=== PATIENT | female | born 1990 | race Caucasian/White ===

== ENCOUNTER 2018-12-05 05:55 | Day surgery (SDC) | payer BC ==
[2018-12-05] MEDS ORDERED: DIPRIVAN 200 MG/20 ML IV ONE (05:56)
[2018-12-05] MEDS ORDERED: Ketamine HCl 50 MG/ML IV ONE (05:56)
[2018-12-05] MEDS ORDERED: Lactated Ringers 1,000 ML IV SCH (06:30)
[2018-12-05 08:59] VITALS: O2SAT 96
[2018-12-05 09:37] VITALS: BP 110/60; PULSE 60
--- NOTE | 2018-12-05 09:47 | OP ---
SURGERY DATE/TIME: 12/05/2018 0806 PREOPERATIVE DIAGNOSIS: Diarrhea, mucus and blood in the stool. POSTOPERATIVE DIAGNOSIS: Small polyps in the transverse colon. PROCEDURE: Colonoscopy with cold biopsy. SURGEON: Dr. Silveira. ANESTHESIA: MAC. Medications given by anesthesia department. HISTORY: The patient is a 28 year-old white female who presents now with complaints of occasional intermittent rectal bleeding along with mucus, diarrhea and change in bowel habits. The patient was felt the need to have endoscopic evaluation. She was appraised of the risks of the procedure including the risk of perforation, phlebitis, untoward reaction to medication, bleeding and missed lesions. The patient verbalized her understanding and desired to have the procedure performed. DESCRIPTION OF PROCEDURE: The patient was given the medications by the anesthesia department. She had continuous pulse oximetry, ECG monitoring, intermittent blood pressure monitoring and tidal CO2 monitoring during the examination. She was placed in the left lateral decubitus position. A digital rectal examination was performed and revealed normal anal sphincter tone and no masses. The flexible Olympus pediatric colonoscope was used to intubate the rectum. A view of the colon was developed sequentially to the cecum including a short distance into the terminal ileum. Upon insertion and withdrawal, including a retroflex view in the rectum was noted two small polyps in the hepatic flexure and proximal transverse colon. These were biopsied using cold biopsy technique to rule out any adenomatous change. Random biopsies were also obtained throughout the colon to rule out evidence of microscopic colitis. The scope was removed from the patient who tolerated the procedure well and was sent back to OP recovery in good condition. The prep was noted to be fair to good.
== END 2018-12-05 09:25 | disposition home or self-care (01) ==
LOC: SDC 05:55
PROVIDERS: ATTEND Family Medicine
DX: D12.3 Benign neoplasm of transverse colon (principal); R19.7 Diarrhea, unspecified; R19.5 Other fecal abnormalities; K92.1 Melena; K63.89 Other specified diseases of intestine
CPT/HCPCS: 88305; J2704

== ENCOUNTER 2021-04-17 02:49 | Emergency (ER) | payer BC ==
--- NOTE | 2021-04-17 03:05 | ERPHSYRPT ---
- History of Present Illness Time Seen by Provider: 04/17/21 03:00 Source: patient, family Exam Limitations: no limitations Physician History: pt developed st today and states that she gets strep twice a year- also left ear pain ; tonsil on left side is swollen with pus; swallowing OK in ER with pain. no meningismis, no vomiting. not short of breath, but feels weak and had to be help in due to light headdedness. denies abd pain or chest pain . Timing/Duration: gradual onset Severity: moderate ENT Location: ear (L), mouth, throat Prearrival Treatment: over the counter meds Modifying Factors: Improves With: nothing Associated Symptoms: ear pain (L), sore throat Allergies/Adverse Reactions: Sulfa (Sulfonamide Antibiotics) [Sulfa(Sulfonamide Antibiotics)] Allergy (Mild, Verified 04/17/21 02:52) Hx Tetanus, Diphtheria Vaccination/Date Given: No Hx Influenza Vaccination/Date Given: No Hx Pneumococcal Vaccination/Date Given: No - Review of Systems Constitutional: No Fever, No Chills Eyes: No Symptoms Ears, Nose, & Throat: Ear Pain, Throat Pain, Painful Swallowing Respiratory: No Cough, No Dyspnea Cardiac: No Chest Pain, No Edema, No Syncope Abdominal/Gastrointestinal: No Abdominal Pain, No Nausea, No Vomiting, No Diarrhea Genitourinary Symptoms: No Dysuria Musculoskeletal: No Back Pain, No Neck Pain Skin: No Rash Neurological: No Dizziness, No Focal Weakness, No Sensory Changes Psychological: No Symptoms Endocrine: No Symptoms Hematologic/Lymphatic: No Symptoms Immunological/Allergic: No Symptoms All Other Systems: Reviewed and Negative - Past Medical History Pertinent Past Medical History: Yes Neurological History: Migraines ENT History: No Pertinent History Cardiac History: No Pertinent History Respiratory History: No Pertinent History Endocrine Medical History: No Pertinent History Musculoskeletal History: Other GI Medical History: No Pertinent History History: Other Psycho-Social History: No Pertinent History Female Reproductive Disorders: No Pertinent History Other Medical History: narrow urethra - Past Surgical History Past Surgical History: Yes Neuro Surgical History: No Pertinent History Cardiac: No Pertinent History Respiratory: No Pertinent History Gastrointestinal: No Pertinent History Genitourinary: Other Musculoskeletal: Other Female Surgical History: Section Other Surgical History: acl reconstruction, urethral dilation. low bp after anesthesia - Social History Smoking Status: Former smoker Exposure to second hand smoke: No Drug Use: none Patient Lives Alone: No - Nursing Vital Signs Nursing Vital Signs: Initial Vital Signs Temperature 102.9 F 04/17/21 02:53 Pulse Rate 93 H 04/17/21 02:53 Respiratory Rate 14 04/17/21 02:53 Blood Pressure 111/64 04/17/21 02:53 O2 Sat by Pulse Oximetry 100 04/17/21 02:53 Pain Scale Pain Intensity 4 - Physical Exam General Appearance: no apparent distress, alert Eye Exam: bilateral eye: normal inspection, PERRL, EOMI Ear Exam: bilateral ear: auricle normal, canal normal, TM normal Nasal Exam: normal inspection Throat Exam: moist mucus membranes, tonsillar exudate, tonsillar swelling, No excessive drooling, No pharynx swelling, No pharynx tenderness, No trismus Neck Exam: normal inspection, non-tender, supple Cardiovascular/Respiratory Exam: normal breath sounds, regular rate/rhythm Abdominal Exam: non-tender, soft Neurologic Exam: alert, oriented x 3, sensation nml, No motor deficits Skin Exam: normal color, warm, dry - Course Nursing assessment & vital signs reviewed: Yes EKG Interpreted by Me: Sinus Rhythm, NORMAL AXIS, NORMAL INTERVALS, NORMAL QRS, Non-specific ST Changes Ordered Tests: Active Orders 24 hr Category Date Time Status IV Insertion STAT Care 04/17/21 03:08 Active NECK WO CONTRAST [CT] Stat Exams 04/17/21 03:06 Taken CBC W DIFF Stat Lab 04/17/21 03:39 Completed HCG QUALITATIVE,SERUM Stat Lab 04/17/21 03:39 Completed Meagher Screen Stat Lab 04/17/21 03:39 Completed Medication Summary Discontinued Medications Generic Name Dose Route Start Last Admin Trade Name Leora PRN Reason Stop Dose Admin Acetaminophen 650 mg 04/17/21 04:59 04/17/21 04:59 Tylenol 325 Mg PO 04/17/21 05:00 650 mg STAT STA Administration Acetaminophen Confirm 04/17/21 04:58 Tylenol 325 Mg Administered 04/17/21 04:59 Dose 650 mg .ROUTE .STK-MED ONE Dexamethasone Sodium Phosphate 10 mg 04/17/21 03:10 04/17/21 03:16 Decadron 10mg Inj. IV 04/17/21 03:11 10 mg STAT ONE Administration Dexamethasone Sodium Phosphate Confirm 04/17/21 03:15 Decadron 10mg Inj. Administered 04/17/21 03:16 Dose 10 mg .ROUTE .STK-MED ONE Sodium Chloride 1,000 mls @ 999 mls/hr 04/17/21 03:08 04/17/21 05:11 Sodium Chloride 0.9% 1000 Ml IV 04/17/21 04:08 Infused .Q1H1M STA Infusion Ceftriaxone Sodium/Dextrose 1 g in 50 mls @ 100 mls/hr 04/17/21 03:09 04/17/21 05:10 Rocephin 1 Gm-D5w 50 Ml Bag IV 04/17/21 03:38 Infused STAT STA Infusion Sodium Chloride Confirm 04/17/21 03:11 Sodium Chloride 0.9% 1000 Ml Administered 04/17/21 03:12 Dose 1,000 mls @ ud .ROUTE .STK-MED ONE Ceftriaxone Sodium/Dextrose Confirm 04/17/21 03:11 Rocephin 1 Gm-D5w 50 Ml Bag Administered 04/17/21 03:12 Dose 1 g in 50 mls @ ud IV .STK-MED ONE Lab/Rad Data: Laboratory Result Diagrams 04/17/21 03:39 Laboratory Results 04/17/21 04/17/21 04/17/21 Range/Units 03:39 03:39 03:39 WBC (4.0-10.5) K/mm3 RBC (4.1-5.4) M/mm3 Hgb (12.0-16.0) gm/dl Hct (35-47) % MCV (78-100) fl MCH (26-32) pg MCHC (32-36) g/dl RDW (11.5-14.0) % Plt Count (150-450) K/mm3 MPV (7.5-11.0) fl Gran % (36.0-66.0) % Eos # (Auto) (0-0.5) Absolute Lymphs (auto) (1.0-4.6) Absolute Monos (auto) (0.0-1.3) Lymphocytes % (24.0-44.0) % Monocytes % (0.0-12.0) % Eosinophils % (0.00-5.0) % Basophils % (0.0-0.4) % Absolute Granulocytes (1.4-6.9) Basophils # (0-0.4) Serum , Qual NEGATIVE (Negative) Monoscreen NEGATIVE (Negative) Group A Strep Antibody NOT DETECTED (NEGATIVE) 04/17/21 Range/Units 03:39 WBC 15.4 H (4.0-10.5) K/mm3 RBC 4.45 (4.1-5.4) M/mm3 Hgb 12.7 (12.0-16.0) gm/dl Hct 40.0 (35-47) % MCV 89.9 (78-100) fl MCH 28.5 (26-32) pg MCHC 31.8 L (32-36) g/dl RDW 12.5 (11.5-14.0) % Plt Count 230 (150-450) K/mm3 MPV 11.1 H (7.5-11.0) fl Gran % 84.5 H (36.0-66.0) % Eos # (Auto) 0.01 (0-0.5) Absolute Lymphs (auto) 1.24 (1.0-4.6) Absolute Monos (auto) 1.12 (0.0-1.3) Lymphocytes % 8.0 L (24.0-44.0) % Monocytes % 7.3 (0.0-12.0) % Eosinophils % 0.1 (0.00-5.0) % Basophils % 0.1 (0.0-0.4) % Absolute Granulocytes 13.04 H (1.4-6.9) Basophils # 0.02 (0-0.4) Serum , Qual (Negative) Monoscreen (Negative) Group A Strep Antibody (NEGATIVE) - Progress Progress: improved, re-examined Progress Note: 04/17/21 06:16 discussed with pt, family , and Dr. Garcia at [facility] ; Dr. Mcdermott agrees an option for this size of abscess is to have a trial of antibiotics and she will call pt in followup tomorrow to schedule f/u at the ENT clinic. Discussed with Dr.: Other (Dr. Garcia at [facility] ) Will see patient in: office Counseled pt/family regarding: lab results, diagnosis, need for follow-up, rad results - Departure Departure Disposition: Home Clinical Impression: left peritonsilar abscess Condition: Good Critical Care Time: No Referrals: COLLEEN SEPULVEDA [Primary Care Provider] - Instructions: Peritonsillar Abscess, Adult (DC) Additional Instructions: Dr. Garcia from [facility] will call you to see how you are doing tomorrow at the number you provided, and to arrange followup at clinic. Return meantime if not improving, short of breath or more difficulties swallowing , vomiting , high fever or other concerns. Prescriptions: Amox Tr/Potass Clav. 875 mg [Augmentin 875-125 Tablet] 875 mg PO BID #20 tablet
[2021-04-17] MEDS ORDERED: Sodium Chloride 0.9% 1000 ML 1,000 ML ONE (03:11)
[2021-04-17] MEDS ORDERED: ROCEPHIN 1 Gm-D5w 50 ml Bag** 1 G/50 ML IVPB IV ONE (03:11)
[2021-04-17] MEDS: Sodium Chloride 0.9% 1000 ML 1,000 ML IV STA (03:12)
[2021-04-17] MEDS: ROCEPHIN 1 Gm-D5w 50 ml Bag** 1 G/50 ML IVPB IV STA (03:14)
[2021-04-17] MEDS ORDERED: DECADRON 10MG INJ. ONE (03:15)
[2021-04-17] MEDS: DECADRON 10MG INJ. IV ONE (03:16)
[2021-04-17 04:05] LABS: Absolute Neutrophil Ct (ANC) 13.04 (1.4-6.9); BASOPHIL % 0.1 % (0.0-0.4); Basophil (Absolute #) 0.02 (0-0.4); Eosinophil % 0.1 % (0.00-5.0); Eosinophil (Absolute #) 0.01 (0-0.5); Hemoglobin 12.7 gm/dl (12.0-16.0); Lymphocyte (Absolute #) 1.24 (1.0-4.6); Mean Cell Volume 89.9 fl (78-100); Mean Corpuscular Hemoglobin 28.5 pg (26-32); Mean Corpuscular Hgb Concent. 31.8 g/dl (32-36); Mean Platelet Volume 11.1 fl (7.5-11.0); Monocyte (Absolute #) 1.12 (0.0-1.3); Monocytes % 7.3 % (0.0-12.0); Neutrophil % 84.5 % (36.0-66.0); Platelet Count 230 K/mm3 (150-450); Red Blood Count 4.45 M/mm3 (4.1-5.4); Red Cell Distribution Width 12.5 % (11.5-14.0); White Blood Count 15.4 K/mm3 (4.0-10.5)
[2021-04-17] MEDS ORDERED: TYLENOL 325 MG ONE (04:58)
[2021-04-17] MEDS: TYLENOL 325 MG PO STA (04:59)
[2021-04-17 05:15] VITALS: PULSE 87
[2021-04-17 06:15] VITALS: BP 111/67; O2SAT 97
[2021-04-17] MEDS ORDERED: Augmentin 875-125 Tablet ONE (06:31)
[2021-04-17] MEDS: Augmentin 875-125 Tablet PO ONE (06:33)
--- NOTE | 2021-04-17 09:11 | XRAY ---
Indication: Swollen tonsils with exudate. Left ear pain. Multiple contiguous axial images obtained through the neck without contrast. Comparison: None Mild asymmetrically prominent left palatine tonsil minimally narrows the oropharynx. There may be associated subcentimeter hypodense focus, possible abscess. Adenoids unremarkable. Remaining supra and infraglottic airway widely patent. Normal epiglottis. A few scattered subcentimeter cervical lymph nodes, none pathologically enlarged. Parotid and submandibular glands are bilaterally symmetric. Osseous structures and cervical spine intact. Base of the brain and lung apices unremarkable. Impression: Asymmetric left tonsillar enlargement presumed inflammatory. Query associated subcentimeter tonsillar abscess. Comment: Preliminary interpretation was made by [facility]. No critical discrepancy.
== END 2021-04-17 06:43 | disposition home or self-care (01) ==
LOC: ED 02:49
DX: J36 Peritonsillar abscess (principal)
CPT/HCPCS: 36000; 36415; 70490; 81025; 85025; 86308; 87651; 96360; 96374; 99284; J0696; J1100; A9270-GY

== ENCOUNTER 2023-06-09 22:35 | Emergency (ER) | payer BC, OTHER ==
--- NOTE | 2023-06-09 22:46 | ERPHSYRPT ---
- History of Present Illness Time Seen by Provider: 06/09/23 22:45 Source: patient Exam Limitations: no limitations Physician History: This is a 33-year-old white female patient of Dr. Silveira who has had left knee surgery in the past secondary to a fall requiring ACL repair. Today, the patient was running at her work ([employer]) when she turned around the corner to go up the stairs she twisted her knee and her knee Dislocated similar to the time many years ago when she had her first left knee injury. She stated that she immediately put the kneecap in place. However it was very painful doing so and she has had pain in that left knee ever since it occurred prior to arrival. Patient is allergic to sulfa but no allergies to other medications. Method of Injury: other (Running at the longterm) Occurred: just prior to arrival Quality: constant, aching, throbbing Severity of Pain-Max: moderate Severity of Pain-Current: moderate Lower Extremities Pain: knee: left Modifying Factors: Improves With: movement Associated Symptoms: unable to bear weight Allergies/Adverse Reactions: Sulfa (Sulfonamide Antibiotics) [Sulfa(Sulfonamide Antibiotics)] Allergy (Mild, Verified 06/09/23 22:44) Home Medications: Spironolactone 100 mg PO DAILY 06/09/23 [History] Venlafaxine HCl [Effexor Xr] 150 mg PO DAILY 06/09/23 [History] Hx Tetanus, Diphtheria Vaccination/Date Given: No Hx Influenza Vaccination/Date Given: No Hx Pneumococcal Vaccination/Date Given: No Travel Risk - International Travel Have you traveled outside of the country in past 3 weeks: No - Coronavirus Screening Are you exhibiting any of the following symptoms?: No Close contact with a COVID-19 positive Pt in past 14-21 Days: No - Vaccine Status Have you recieved a Covid-19 vaccination: Yes Memory Care Director: Moderna - Vaccination Dates Date of 2cond Vaccination (if applicable): 03/03 - Review of Systems Constitutional: No Symptoms Eyes: No Symptoms Ears, Nose, & Throat: No Symptoms Respiratory: No Symptoms Cardiac: No Symptoms Abdominal/Gastrointestinal: No Symptoms Genitourinary Symptoms: No Symptoms (Left knee) Musculoskeletal: Injury Skin: No Symptoms Neurological: No Symptoms Psychological: No Symptoms Endocrine: No Symptoms Hematologic/Lymphatic: No Symptoms Immunological/Allergic: No Symptoms All Other Systems: Reviewed and Negative - Past Medical History Pertinent Past Medical History: Yes Neurological History: Migraines ENT History: No Pertinent History Cardiac History: No Pertinent History Respiratory History: No Pertinent History Endocrine Medical History: No Pertinent History Musculoskeletal History: Other GI Medical History: No Pertinent History History: Other Psycho-Social History: No Pertinent History Female Reproductive Disorders: No Pertinent History Other Medical History: narrow urethra - Past Surgical History Past Surgical History: Yes Neuro Surgical History: No Pertinent History Cardiac: No Pertinent History Respiratory: No Pertinent History Gastrointestinal: No Pertinent History Genitourinary: Other Musculoskeletal: Other Female Surgical History: Section Other Surgical History: acl reconstruction, urethral dilation. low bp after ane sthesia - Social History Smoking Status: Former smoker Exposure to second hand smoke: No Drug Use: none Patient Lives Alone: No - Nursing Vital Signs Nursing Vital Signs: Initial Vital Signs Temperature 98.3 F 06/09/23 22:45 Pulse Rate 107 H 06/09/23 22:45 Respiratory Rate 18 06/09/23 22:45 Blood Pressure 113/74 06/09/23 22:45 O2 Sat by Pulse Oximetry 98 06/09/23 22:45 Pain Scale Pain Intensity 7 - Physical Exam General Appearance: no apparent distress, alert, anxiety Eyes, Ears, Nose, Throat Exam: normal ENT inspection, moist mucous membranes Neck Exam: normal inspection, non-tender, supple, full range of motion Cardiovascular/Respiratory Exam: chest non-tender, no respiratory distress Gastrointestinal/Abdominal Exam: non-tender Back Exam: normal inspection, normal range of motion, No CVA tenderness, No vertebral tenderness Hips Exam: bilateral: non-tender, normal inspection, normal range of motion, no evidence of injury Legs Exam: bilateral leg: non-tender, normal inspection, normal range of motion, no evidence of injury Knees Exam: right knee: non-tender, normal inspection, normal range of motion, no evidence of injury, left knee: joint effusion (Anteriorly), soft tissue tenderness (Anteriorly), swelling (Anteriorly) Ankle Exam: bilateral ankle: non-tender, normal inspection, normal range of motion, no evidence of injury Foot Exam: bilateral foot: non-tender, normal inspection, normal range of motion, no evidence of injury Neuro/Tendon Exam: normal sensation, normal motor functions, normal tendon functions, responds to pain, no evidence tendon injury, No sensory deficit Mental Status Exam: alert, oriented x 3, cooperative Skin Exam: normal color, warm, dry SpO2 Interpretation: normal O2 Delivery: Room Air - Course Nursing assessment & vital signs reviewed: Yes Ordered Tests: Active Orders 24 hr Category Date Time Status KNEE (3 VIEWS) Stat Exams 06/09/23 22:46 Taken Medication Summary Discontinued Medications Generic Name Dose Route Start Last Admin Trade Name Leora PRN Reason Stop Dose Admin Ibuprofen 600 mg 06/09/23 22:55 06/09/23 22:58 Ibuprofen 600 Mg Tablet PO 06/09/23 22:56 600 mg STAT ONE Administration Ibuprofen Confirm 06/09/23 22:58 Ibuprofen 600 Mg Tablet Administered 06/09/23 22:59 Dose 600 mg .ROUTE .STK-MED ONE Orphenadrine Citrate 100 mg 06/09/23 22:55 06/09/23 22:58 Orphenadrine Citrate 100 Mg Er Tab PO 06/09/23 22:56 100 mg STAT ONE Administration Orphenadrine Citrate Confirm 06/09/23 22:57 Orphenadrine Citrate 100 Mg Er Tab Administered 06/09/23 22:58 Dose 100 mg PO .STK-MED ONE Oxycodone/Acetaminophen 1 tab 06/09/23 22:55 06/09/23 22:59 Oxycodone Hcl/Apap 5 Mg/325 Mg Tablet PO 06/09/23 22:56 1 tab STAT STA Administration Oxycodone/Acetaminophen Confirm 06/09/23 22:57 Oxycodone Hcl/Apap 5 Mg/325 Mg Tablet Administered 06/09/23 22:58 Dose 1 tab .ROUTE .STK-MED ONE - Progress Progress: improved, pain not gone completely Progress Note: 06/09/23 23:32 X-ray of the left knee was interpreted by me. There is no evidence of any acute fracture or dislocation. This patient's medical issue is 1 of low complexity. The level complexity and the work-up performed based on review of the patient's past medical history, review of the patient's medication list, and review of the patient's drug allergy list. In addition, we base it on the history of present illness and physical findings on examination. The work-up in this patient includes a three- view x-ray of the left knee. The above-stated findings are noted. We we will provide the patient with crutches and a left knee immobilizer. She is to follow-up with her orthopedic surgeon tomorrow, 06/10/2023, for further evaluation management Counseled pt/family regarding: diagnosis, need for follow-up, rad results Medical Desision Making - Independent Historian Additional History obtained from: Spouse - Diagnostic Testing Diagnostic test were ordered, analyzed, and reviewed by me: Yes Radiological Interpretation: Interpreted by me - Risk of complications The pt has a mod risk of morbidity or mortality based on: Need for prescription drug management - Departure Departure Disposition: Home Clinical Impression: Left knee sprain Condition: Stable Critical Care Time: No Referrals: COLLEEN SILVEIRA [Primary Care Provider] - Follow up/PCP as directed Additional Instructions: Ice pack to left knee 3 times a day for the next 48 hours. Call your orthopedic surgeon tomorrow, 06/10/2023, to make arranges for follow-up appointment for further evaluation management. Wear the knee immobilizer for pain control. Prescriptions: Oxycodone HCl/Acetaminophen [Percocet 5-325 mg Tablet] 1 each PO Q8H PRN PRN #6 tablet MDD 3 PRN Reason: Moderate To Severe Pain
[2023-06-09 22:52] VITALS: RESP 18
[2023-06-09 22:54] VITALS: TEMP 98.3
[2023-06-09] MEDS ORDERED: Norflex 100 MG Tablet PO ONE ×2 (22:55→22:57)
[2023-06-09] MEDS ORDERED: PERCOCET TABLET 5/325MG PO STA ×2 (22:55→23:38)
[2023-06-09] MEDS ORDERED: MOTRIN 600 MG PO ONE (22:55)
[2023-06-09] MEDS ORDERED: PERCOCET TABLET 5/325MG ONE ×2 (22:57→23:51)
[2023-06-09] MEDS ORDERED: MOTRIN 600 MG ONE (22:58)
[2023-06-10 00:01] VITALS: BP 105/67; PULSE 76; O2SAT 97
--- NOTE | 2023-06-10 08:35 | XRAY ---
Indication: Pain. History dislocation. Comparison: None 3 view left knee demonstrates previous ACL reconstructive surgery, minimal medial joint space narrowing, and tiny nonspecific effusion. No other bony, articular, or soft tissue abnormalities.
== END 2023-06-09 23:57 | disposition home or self-care (01) ==
LOC: ED 22:35
DX: S83.92XA Sprain of unspecified site of left knee, initial encounter (principal); X50.0XXA Overexertion from strenuous movement or load, initial encounter; Y93.02 Activity, running; Y92.148 Other place in prison as the place of occurrence of the external cause; Y99.0 Civilian activity done for income or pay; Z79.891 Long term (current) use of opiate analgesic; Z79.899 Other long term (current) drug therapy
CPT/HCPCS: 73562; 99283; L1830; A9270-GY

== ENCOUNTER 2023-08-04 10:39 | Emergency (ER) | payer OTHER ==
[2023-08-04] MEDS ORDERED: Eye-Stream Solution ONE (11:10)
[2023-08-04] MEDS ORDERED: Fluor-I-Strip/Ful-Flo OP ONE ×2 (11:10→12:15)
[2023-08-04] MEDS ORDERED: TETRACAINE 0.5% STERI-UNIT SOL OP ONE (11:10)
[2023-08-04 11:20] VITALS: BP 111/64; PULSE 81; RESP 18; TEMP 98.1; O2SAT 100
[2023-08-04] MEDS ORDERED: Eye-Stream Solution OP ONE (12:15)
[2023-08-04] MEDS ORDERED: TETRACAINE 0.5% STERI-UNIT SOL OP STA (12:15)
--- NOTE | 2023-08-04 12:22 | ERPHSYRPT ---
- History of Present Illness Time Seen by Provider: 08/04/23 11:45 Exam Limitations: no limitations Patient Subjective Stated Complaint: Right eye pain Triage Nursing Assessment: Patient ambulated back to ED and transferred self to bed. Patient A+O x 3. Patient's skin pink, warm and dry. Patient complains of right eye pain since Saturday. Patient had a left knee repair on Saturday and stated she felt like there was something in her right eye. Patient states her right eye has gotten more painful and red with drainage. Right eye noted to be red with yellow drainage. Physician History: The patient presented with an eye issue that began after waking up from knee surgery on Saturday. They described the initial sensation as feeling like sand in their eye, which has been bothering them since the surgery. The patient noticed increasing redness in the eye over the past two days, and the eye started bleeding this morning. The eye does not itch but causes pain, which the patient described as a burning sensation. The surrounding area of the eye feels bruised when touched, and the patient has been experiencing difficulty using eye drops due to the pain. The patient has not noticed any changes in vision but has been experiencing a sensation of the eye drooping. They have tried using eye drops over the past couple of days without any improvement. The patient has been dealing with anxiety and is concerned about the possibility of having a panic attack or seizure due to the stress caused by the eye issue. Timing/Duration: day(s) (4) Location: right eye Severity: moderate Apparent Injury: yes Associated Symptoms: pain, burning, redness, matting, foreign body sensation, blurred vision, No itching Chemical Exposure: No Trauma: No Welding Arc/Tanning Bed Exposure: No Allergies/Adverse Reactions: Sulfa (Sulfonamide Antibiotics) [Sulfa(Sulfonamide Antibiotics)] Allergy (Mild, Verified 08/04/23 11:03) Home Medications: Spironolactone 100 mg PO DAILY 06/09/23 [History] Venlafaxine HCl [Effexor Xr] 150 mg PO DAILY 06/09/23 [History] Hx Tetanus, Diphtheria Vaccination/Date Given: No Hx Influenza Vaccination/Date Given: No Hx Pneumococcal Vaccination/Date Given: No Immunizations Up to Date: Yes Travel Risk - International Travel Have you traveled outside of the country in past 3 weeks: No - Coronavirus Screening Are you exhibiting any of the following symptoms?: No Close contact with a COVID-19 positive Pt in past 14-21 Days: No - Vaccine Status Have you recieved a Covid-19 vaccination: Yes Command And Control Officer: Moderna - Vaccination Dates Date of 2cond Vaccination (if applicable): 03/03 - Review of Systems All Other Systems: Reviewed and Negative (As per HPI) - Past Medical History Pertinent Past Medical History: Yes Neurological History: Seizures ENT History: No Pertinent History Cardiac History: No Pertinent History Respiratory History: No Pertinent History Endocrine Medical History: No Pertinent History Musculoskeletal History: No Pertinent History GI Medical History: No Pertinent History History: Other Psycho-Social History: No Pertinent History Female Reproductive Disorders: No Pertinent History Other Medical History: PSH: ACL REPAIR PREVIOUS, 2 C -SECTIONS, TUBAL LIGATION, TONSILLECOMTY WITH ADNOID REMOVAL, ENT SCOPE. PMH: NONE - Past Surgical History Past Surgical History: Yes Neuro Surgical History: No Pertinent History Cardiac: No Pertinent History Respiratory: No Pertinent History Gastrointestinal: No Pertinent History Genitourinary: Other Musculoskeletal: Other Female Surgical History: Section Other Surgical History: acl reconstruction, urethral dilation. low bp after anesthesia. left knee surgery - Social History Smoking Status: Former smoker Exposure to second hand smoke: No Drug Use: none Patient Lives Alone: No - Female History Hx Last Menstrual Period: 1 week ago Hx Now: No - Nursing Vital Signs Nursing Vital Signs: Initial Vital Signs Temperature 98.1 F 08/04/23 11:05 Pulse Rate 81 08/04/23 11:05 Respiratory Rate 18 08/04/23 11:05 Blood Pressure 111/64 08/04/23 11:05 O2 Sat by Pulse Oximetry 100 08/04/23 11:05 Pain Scale Pain Intensity 6 - Physical Exam Vision Acuity Degree Evaluation Phase: Corrected Vision Acuity Right Eye: 20/100 Vision Acuity Left Eye: 20/50 Eye Exam: right eye: conjunctival hemorrhage, conjunctival inflammation, corneal abrasion (superolater, inferolateral), erythema, exudate, foreign body, vision changes, left eye: normal inspection, bilateral eye: PERRL, EOMI SpO2: 100 Procedures - Eye Procedure Timeout: Performed Tetracaine Drops Administered: Yes Eye FB Removal: removal w/ cotton swab Remaining Material after FB Removal: none Eye Irrigated w/ Saline (ccs): 10 Progress: Fluorescene applied after Tetracaine gtts. Gerard lamp revealed a large corneal abrasion on the superolateral and inferolateral cornea. Foreign body removed under the lateral aspect of the eyelid. Eye irrigated with sterile eye gtts following procedure. - Course Nursing assessment & vital signs reviewed: Yes Ordered Tests: Medication Summary Discontinued Medications Generic Name Dose Route Start Last Admin Trade Name Gabrielq PRN Reason Stop Dose Admin Eye Irrigation Solution Confirm 08/04/23 11:10 Sodium/Potassium/Ari/Magnesium 30 Ml Eye Wash Administered 08/04/23 11:11 Dose 30 ml .ROUTE .STK-MED ONE Eye Irrigation Solution 15 ml 08/04/23 12:15 08/04/23 12:15 Sodium/Potassium/Ari/Magnesium 30 Ml Eye Wash OP 08/04/23 12:16 15 ml STAT ONE Administration Fluorescein Sodium Confirm 08/04/23 11:10 Fluorescein Sodium 1 Mg/Strip Strip Administered 08/04/23 11:11 Dose 1 mg OP .STK-MED ONE Fluorescein Sodium 1 mg 08/04/23 12:15 08/04/23 12:15 Fluorescein Sodium 1 Mg/Strip Strip OP 08/04/23 12:16 1 mg STAT ONE Administration Tetracaine HCl Confirm 08/04/23 11:10 Tetracaine Hcl/Pf 4 Ml Bottle Administered 08/04/23 11:11 Dose 4 ml OP .STK-MED ONE Tetracaine HCl 4 ml 08/04/23 12:15 08/04/23 12:15 Tetracaine Hcl/Pf 4 Ml Bottle OP 08/04/23 12:16 4 ml STAT STA Administration - Progress Progress: improved Progress Note: Counseling on good hand hygiene, no contact lens use while sx present. Trial of cool compresses and liberal use of refrigerated artificial tears. Can use Tetracaine gtts every 30 minutes for the first 24 hours, but d/c use after Maxitrol eye gtts prescribed Please f/u w/ opthomologist on Saturday. Counseled pt/family regarding: diagnosis, need for follow-up Medical Desision Making - Risk of complications The pt has a mod risk of morbidity or mortality based on: Need for prescription drug management - Departure Departure Disposition: Home Clinical Impression: Corneal abrasion, Foreign body of right eye Condition: Good Critical Care Time: No Referrals: PRATEEK GREENWOOD MD [NON-STAFF PHY W/O PRIVILEGES] - Follow up/PCP as directed CHEVY MIRANDA [NON-STAFF PHY W/O PRIVILEGES] - Follow up/PCP as directed Instructions: Corneal Abrasion (DC), Foreign Body in Eye (DC) Additional Instructions: Can use the Tetracaine eye gtts every 30 minutes for the next 24 hours. Prescriptions: Neomycin/Polymyxin B/Dexametha [Maxitrol Eye Drops] 5 ml OP Q4H 7 Days
== END 2023-08-04 12:40 | disposition home or self-care (01) ==
LOC: ED 10:39
DX: T15.01XA Foreign body in cornea, right eye, initial encounter (principal); H57.11 Ocular pain, right eye; Z79.899 Other long term (current) drug therapy
CPT/HCPCS: 65220; 99281; A9270-GY

== ENCOUNTER 2023-12-19 07:50 | Emergency (ER) | payer BC, OTHER ==
[2023-12-19 08:11] VITALS: PULSE 83; RESP 20; TEMP 98.8; O2SAT 100
[2023-12-19] MEDS ORDERED: Sodium Chloride 0.9% 1000 ML 1,000 ML ONE (08:41)
[2023-12-19] MEDS ORDERED: TORAdol 30 mg Injection ONE (08:41)
[2023-12-19] MEDS: Sodium Chloride 0.9% 1000 ML 1,000 ML IV STA (08:44)
[2023-12-19] MEDS: TORAdol 30 mg Injection IV ONE (08:44)
[2023-12-19 09:03] LABS: Absolute Neutrophil Ct (ANC) 4.32 x10^3/uL (1.4-6.9); BASOPHIL % 0.7 % (0.0-0.4); Basophil (Absolute #) 0.05 x10^3/uL (0-0.4); Eosinophil % 2.8 % (0.00-5.0); Eosinophil (Absolute #) 0.19 x10^3/uL (0-0.5); Hemoglobin 11.4 g/dL (12.0-16.0); IMMATURE GRAN # 0.02 x10^3u/L (0.00-0.03); IMMATURE GRAN % 0.3 % (0.00-0.4); Lymphocyte (Absolute #) 1.61 x10^3/uL (1.0-4.6); Lymphocytes % 24.1 % (24.0-44.0); Mean Cell Volume 91.8 fL (78-100); Mean Corpuscular Hemoglobin 29.1 pg (26-32); Mean Corpuscular Hgb Concent. 31.7 g/dL (32-36); Mean Platelet Volume 10.3 fL (7.5-11.0); Monocyte (Absolute #) 0.49 x10^3/uL (0.0-1.3); Monocytes % 7.3 % (0.0-12.0); Neutrophil % 64.8 % (36.0-66.0); Platelet Count 254 x10^3/uL (150-450); Red Blood Count 3.92 x10^6/uL (4.1-5.4); White Blood Count 6.7 x10^3/uL (4.0-10.5)
[2023-12-19 09:18] LABS: ALBUMIN 3.9 g/dL (3.5-5.0); ALKALINE PHOSPHATASE 93 U/L (38-126); ANION GAP 9.4 MEQ/L (5-15); BILIRUBIN,TOTAL < 0.10 mg/dL (0.2-1.3); BLOOD UREA NITROGEN 11 mg/dL (7-17); CHLORIDE 108 mmol/L (98-107); Calcium 8.2 mg/dL (8.4-10.2); Carbon Dioxide 26 mmol/L (22-30); Creatinine 1 0.65 mg/dL (0.52-1.04); EST GLOMERULAR FILTRATION RATE 120.6 ML/MIN; Glucose 103 mg/dL (74-106); SGOT/AST 22 U/L (14-36); SGPT/ALT 22 U/L (0-35); SODIUM 139 mmol/L (135-145); Total Protein 6.6 g/dL (6.3-8.2)
[2023-12-19 10:48] VITALS: BP 101/66
--- NOTE | 2023-12-19 10:48 | ERPHSYRPT ---
- History of Present Illness Time Seen by Provider: 12/19/23 08:05 Historian: patient Exam Limitations: no limitations Patient Subjective Stated Complaint: C/O pain in right groin and upper thigh that awoke her from her sleep at 0200 today. Patient states that she had a co lonscopy yesterday at [facility] with Dr. Silveira. Triage Nursing Assessment: Patient brought back to ER in a W/C. She is crying and showing s/s of pain. Patient is holding her right groin area. She is alert and oriented. NO SOB. Skin tone normal. Physician History: 33-year-old female presented in ER with complains of right groin/right lower quadrant pain with radiation to right upper thigh moderate to severe sharp shooting waking her up from sleep around 2 AM. Denies associated urinary complaints. No nausea or vomiting. Reports increased pain with palpation and movements. Did not notice any groin swelling. No history of inguinal/femoral hernias. Patient had a colonoscopy done yesterday. Reports passing gas. Allergies/Adverse Reactions: Sulfa (Sulfonamide Antibiotics) [Sulfa(Sulfonamide Antibiotics)] Allergy (Mild, Verified 12/19/23 07:57) Home Medications: Spironolactone 100 mg PO DAILY 06/09/23 [History] Venlafaxine HCl [Effexor Xr] 150 mg PO DAILY 06/09/23 [History] Hydroxyzine HCl 25 mg [Atarax 25 mg] 1 tab PO QID PRN 12/19/23 [History] Hx Tetanus, Diphtheria Vaccination/Date Given: Yes Hx Influenza Vaccination/Date Given: No Hx Pneumococcal Vaccination/Date Given: No Immunizations Up to Date: Yes Travel Risk - International Travel Have you traveled outside of the country in past 3 weeks: No - Coronavirus Screening Are you exhibiting any of the following symptoms?: No - Vaccine Status Have you recieved a Covid-19 vaccination: Yes Insurance Agents Supervisor: Moderna - Vaccination Dates Date of 2cond Vaccination (if applicable): 03/03 - Review of Systems Constitutional: No Symptoms Eyes: No Symptoms Ears, Nose, & Throat: No Symptoms Respiratory: No Symptoms Cardiac: No Symptoms Abdominal/Gastrointestinal: Abdominal Pain Genitourinary Symptoms: No Symptoms Musculoskeletal: No Symptoms Skin: No Symptoms Neurological: No Symptoms Endocrine: No Symptoms Hematologic/Lymphatic: No Symptoms Immunological/Allergic: No Symptoms - Past Medical History Pertinent Past Medical History: Yes Neurological History: Seizures ENT History: No Pertinent History Cardiac History: No Pertinent History Respiratory History: No Pertinent History Endocrine Medical History: No Pertinent History Musculoskeletal History: No Pertinent History GI Medical History: No Pertinent History History: Other Psycho-Social History: Anxiety, Depression Female Reproductive Disorders: No Pertinent History Other Medical History: PSH: ACL REPAIR PREVIOUS, 2 C -SECTIONS, TUBAL LIGATION, TONSILLECOMTY WITH ADNOID REMOVAL, ENT SCOPE. PMH: NONE - Past Surgical History Past Surgical History: Yes Neuro Surgical History: No Pertinent History Cardiac: No Pertinent History Respiratory: No Pertinent History Gastrointestinal: No Pertinent History Genitourinary: Other Musculoskeletal: Other Female Surgical History: Section, Tubal Ligation Other Surgical History: acl reconstruction, urethral dilation, left knee surgery - Social History Smoking Status: Former smoker Exposure to second hand smoke: No Drug Use: none Patient Lives Alone: No - Female History Hx Last Menstrual Period: A week ago Hx Now: (unkn) - Nursing Vital Signs Nursing Vital Signs: Initial Vital Signs Temperature 98.8 F 12/19/23 07:59 Pulse Rate 81 12/19/23 07:59 Respiratory Rate 20 12/19/23 07:59 Blood Pressure 114/73 12/19/23 07:59 O2 Sat by Pulse Oximetry 100 12/19/23 07:59 Pain Scale Pain Intensity 7 - Physical Exam General Appearance: no apparent distress, alert Eye Exam: PERRL/EOMI Ears, Nose, Throat Exam: normal ENT inspection, pharynx normal, moist mucous membranes Neck Exam: normal inspection, non-tender, supple, full range of motion Respiratory Exam: normal breath sounds, lungs clear Cardiovascular Exam: regular rate/rhythm, normal heart sounds Gastrointestinal/Abdomen Exam: soft, normal bowel sounds, tenderness (Right lower quadrant/right groin area. Negative expansile cough impulse. No upper thigh swelling.), No guarding, No rebound Back Exam: normal inspection, normal range of motion, CVA tenderness Extremity Exam: normal inspection, normal range of motion Neurologic Exam: alert, oriented x 3, cooperative Skin Exam: normal color SpO2 Interpretation: normal SpO2: 100 O2 Delivery: Room Air Ordered Tests: Active Orders 24 hr Category Date Time Status IV Insertion STAT Care 12/19/23 08:31 Active NPO (ED) STAT Care 12/19/23 08:31 Active CBC W DIFF Stat Lab 12/19/23 08:31 Completed CMP Stat Lab 12/19/23 09:00 Completed HCG, Quantitative (Inhouse) Stat Lab 12/19/23 Received UA W/RFX UR CULTURE Stat Lab 12/19/23 08:31 Ordered Medication Summary Discontinued Medications Generic Name Dose Route Start Last Admin Trade Name Leroa PRN Reason Stop Dose Admin Sodium Chloride 1,000 mls @ 999 mls/hr 12/19/23 08:31 12/19/23 10:20 Sodium Chloride 0.9% 1000 Ml IV 12/19/23 09:31 Infused .Q1H1M STA Infusion Sodium Chloride Confirm 12/19/23 08:41 Sodium Chloride 0.9% 1000 Ml Administered 12/19/23 08:42 Dose 1,000 mls @ ud .ROUTE .STK-MED ONE Ketorolac Tromethamine 30 mg 12/19/23 08:31 12/19/23 08:44 Ketorolac Tromethamine 30 Mg/Ml Inj IV 12/19/23 08:32 30 mg STAT ONE Administration Ketorolac Tromethamine Confirm 12/19/23 08:41 Ketorolac Tromethamine 30 Mg/Ml Inj Administered 12/19/23 08:42 Dose 30 mg .ROUTE .STK-MED ONE Lab/Rad Data: Laboratory Result Diagrams 12/19/23 08:31 12/19/23 09:00 Laboratory Results 12/19/23 12/19/23 Range/Units 09:00 08:31 WBC 6.7 (4.0-10.5) x10^3/uL RBC 3.92 L (4.1-5.4) x10^6/uL Hgb 11.4 L (12.0-16.0) g/dL Hct 36.0 (35-47) % MCV 91.8 (78-100) fL MCH 29.1 (26-32) pg MCHC 31.7 L (32-36) g/dL RDW 12.0 (11.5-14.0) % Plt Count 254 (150-450) x10^3/uL MPV 10.3 (7.5-11.0) fL Gran % 64.8 (36.0-66.0) % Immature Gran % (Auto) 0.3 (0.00-0.4) % Nucleat RBC Rel Count 0.0 (0.00-0.1) % Eos # (Auto) 0.19 (0-0.5) x10^3/uL Immature Gran # (Auto) 0.02 (0.00-0.03) x10^3u/L Absolute Lymphs (auto) 1.61 (1.0-4.6) x10^3/uL Absolute Monos (auto) 0.49 (0.0-1.3) x10^3/uL Absolute Nucleated RBC 0.00 (0.00-0.01) x10^3u/L Lymphocytes % 24.1 (24.0-44.0) % Monocytes % 7.3 (0.0-12.0) % Eosinophils % 2.8 (0.00-5.0) % Basophils % 0.7 (0.0-0.4) % Absolute Granulocytes 4.32 (1.4-6.9) x10^3/uL Basophils # 0.05 (0-0.4) x10^3/uL Sodium 139 (135-145) mmol/L Potassium 4.0 (3.5-5.1) mmol/L Chloride 108 H (98-107) mmol/L Carbon Dioxide 26 (22-30) mmol/L Anion Gap 9.4 (5-15) MEQ/L BUN 11 (7-17) mg/dL Creatinine 0.65 (0.52-1.04) mg/dL Estimated GFR 120.6 ML/MIN Glucose 103 (74-106) mg/dL Calcium 8.2 L (8.4-10.2) mg/dL Total Bilirubin < 0.10 L (0.2-1.3) mg/dL AST 22 (14-36) U/L ALT 22 (0-35) U/L Alkaline Phosphatase 93 (38-126) U/L Serum Total Protein 6.6 (6.3-8.2) g/dL Albumin 3.9 (3.5-5.0) g/dL - Progress Progress: improved Progress Note: 12/19/23 10:45 33-year-old with a colonoscopy yesterday woke up this morning with right groin/ right lower quadrant pain. Patient has tenderness in the right groin/right lower quadrant. No lymphadenopathy are inguinal/femoral hernia noticed. She has tenderness in right lower quadrant with no guarding or rebound. She is given symptomatic treatment for pain with Toradol. Workup showed normal white count, fairly unremarkable chemistries. Patient feels better on reevaluation and does not want to have CAT scan done or urinalysis done. Patient is thoroughly counseled about the importance of imaging and urine but she does not want to stay for that and wants to leave AGAINST MEDICAL ADVICE. She is not confused or altered at all. She does understand that leaving AMA would not only delay the diagnosis process but also worsening of condition/morbidity. She is advised to follow-up outpatient with primary care in 1 to 2 days. 12/19/23 10:47 Counseled pt/family regarding: lab results, diagnosis, need for follow-up Medical Desision Making - Independent Historian Additional History obtained from: Family - Diagnostic Testing Diagnostic test were ordered, analyzed, and reviewed by me: Yes - Departure Departure Disposition: AMA Clinical Impression: Right groin pain, Right lower quadrant pain Condition: Stable Critical Care Time: No Referrals: COLLEEN SILVEIRA [Primary Care Provider] - Follow up with PCP 1 day
== END 2023-12-19 10:49 | disposition left against medical advice (07) ==
LOC: ED 07:50
DX: R10.31 Right lower quadrant pain (principal); Z20.828 Contact with and (suspected) exposure to other viral communicable diseases
CPT/HCPCS: 36000; 36415; 80053; 84702; 85025; 96360; 96374; 99284; J1885